=== PATIENT | female | born 1985 | race Caucasian/White ===

== ENCOUNTER 2019-08-12 10:46 | Day surgery (SDC) | payer BC ==
[2019-08-12 11:05] VITALS: BP 125/74; TEMP 98.6; BMI 29.7
[2019-08-12] MEDS ORDERED: hydrALAZINE 20 MG/ML VIAL SLOW IVP PRN (11:10)
--- NOTE | 2019-08-12 13:34 | PRG ---
DATE OF SERVICE: 08/12/2019 PRIMARY OB: Dr. Hobson, at [facility]. CHIEF COMPLAINT: Decreased movement. HISTORY OF PRESENT ILLNESS: The patient is a 34-year-old, G3, P2 female with an intrauterine at 26 weeks and a day, presenting today with decreased movement. She reports that she felt her baby move last night around 10 o'clock before going to bed. She woke up as usual, had breakfast and did not feel her baby move as she typically does and came here for evaluation. The patient reports that she has some baseline shortness of breath, nausea, and a mild headache, that she rates a 1 to 2/10. She reports that she has had some brief vision changes when she was squatted, but has resolved spontaneously. She reports intermittent right lower quadrant pain that she attributes to activity movement and motion. The patient denies uterine contractions, vaginal bleeding, leakage of fluid, rupture of membranes. She denies urinary urgency or frequency. Denies diarrhea, vomiting, fever, abdominal trauma. She denies any recent illness. She denies swelling. PAST MEDICAL HISTORY: She has diet-controlled gestational diabetes, anemia, history of panic attacks. She was recently diagnosed and treated for strep infection and an ear infection. PAST SURGICAL HISTORY: She has had surgery on her teeth. ALLERGIES: NO KNOWN DRUG ALLERGIES. MEDICATIONS: 1. vitamins. 2. Iron. 3. B6. 4. Unisom. OB HISTORY: She has had two uncomplicated vaginal deliveries at term. SOCIAL HISTORY: Denies drug, alcohol, tobacco use. REVIEW OF SYSTEMS: Per HPI. OB LABS: Reports blood type of O negative. PHYSICAL EXAMINATION: VITAL SIGNS: Blood pressure 125/74, heart rate of 101, respiratory rate 16, temperature 99.0. GENERAL: She appears to be in no acute distress. She is alert, oriented, cooperative, and pleasant to interact with. HEENT: Head is normocephalic, atraumatic. LUNGS: Clear to auscultation bilaterally. HEART: Has a regular rate and rhythm. ABDOMEN: Gravid, soft, nontender. She has a fundal height of 28 cm. EXTREMITIES: Nontender, nonedematous. heart tracing, baselines in the 150s with moderate long-term variability and appropriate for 26-week gestation. ASSESSMENT AND PLAN: The patient is a 34-year-old female with an intrauterine at 26 weeks, here for decreased movement. She does report upon arrival and placement of monitors, the baby has been moving quite vigorously again, giving her reassurance. A fundal height the 28 cm suggests that the fetus is of normal growth and there is normal fluid. heart tracing is reassuring for gestational age. The patient has been given reassurance and is being discharged home. She has an appointment on Monday with her primary OB, which we have encouraged that she keep. Job ID: [id number]
== END 2019-08-12 11:16 | disposition home or self-care (01) ==
LOC: L&D/OP 10:46
PROVIDERS: ATTEND Pediatrics
DX: O36.8120 Decreased fetal movements, second trimester, not applicable or unspecified (principal); O24.410 Gestational diabetes mellitus in pregnancy, diet controlled; O99.012 Anemia complicating pregnancy, second trimester; D64.9 Anemia, unspecified; Z3A.26 26 weeks gestation of pregnancy; Z79.899 Other long term (current) drug therapy
CPT/HCPCS: 99282